=== PATIENT | male | born 1980 | race Caucasian/White ===

== ENCOUNTER 2023-03-08 16:10 | Outpatient (OUT) | payer OTHER, SELFPAY ==
--- NOTE | 2023-03-08 | XR_ITS ---
The [address] [address] Patient Name: ABHAY CHANEL MRN: [id number] date: 1980 Sex: M Assigned Patient Location: [facility] Current Patient Location: Accession/Order Number: [id number] Exam Date: 03/08/2023 16:16 Report Date: 03/10/2023 11:59 At the request of: ROBB BARRIGA Procedure: XR abdomen 1V EXAMINATION: XR abdomen 1V HISTORY: N20.0 ; follow-up kidney stones COMPARISON: XR KUB 03/29/2021 FINDINGS: KIDNEY/URETER - RIGHT: No visible renal or ureteral calcifications. KIDNEY/URETER - LEFT: No visible renal or ureteral calcifications. PELVIS: No visible ureteral stones. BOWEL: No abnormal dilation or deviation. BONES: No acute abnormality. OTHER: Negative. No abnormal gaseous collections. XR/XR abdomen 1V IMPRESSION: 1. No appreciable urinary tract calculi. Electronically authenticated by: PANCHO SUN Date: 03/10/2023 11:59
== END 2023-03-08 16:11 | disposition home or self-care (01) ==
LOC: RAD 16:12
PROVIDERS: Visit Provider Physician Assistant
DX: N20.0 Calculus of kidney (principal)
CPT/HCPCS: 74018

== ENCOUNTER 2025-01-25 08:05 | Outpatient (OUT) | payer OTHER, SELFPAY ==
--- OUTSIDE RECORDS SUMMARY | 2025-01-25 08:09 | XMS_ITS | CCD ---
Author Organization [facility] Inform ion [facility] Care Team Providers Care Senior Research Scientist Name Role Phone CHRISTAL NDIAYE, DR MICHOACANO Dias Attending Liliya SIEGEL JR, DR MICHOACANO Dias Consulting Unavailabl e REQUEST, DR PORRAS LISTED Primary Care James SIEGEL JR, DR MICHOACANO Dias Admitting Unavailabl e REQUEST, DR PORRAS LISTED Primary Care Unavailpj SUN, DR PANCHO Dowling Consulting Jennifer SIEGEL JR, DR MICHOACANO Dias Admitting Liliya SIEGEL JR, DR MICHOACANO Dias Attending Liliya SIEGEL JR, DR MICHOACANO Dias Consulting Liliya SIEGEL JR, DR MICHOACANO Dias Attending Unavailabl e REQUEST, DR PORRAS LISTED Primary Care Unavailpj SIEGEL JR, DR MICHOACANO Dias Admitting Unavaildamion SIEGEL JR, DR MICHOACANO Dias Attending Unavailabl e REQUEST, DR PORRAS LISTED Primary Care Unavailpj SUN, DR PANCHO Dowling Consulting Jennifer SIEGEL JR, DR MICHOACANO Dias Admitting Unavaildamion SIEGEL JR, DR MICHOACANO Dias Consulting Unavaildamion reed NONE, XXXX Primary Care Physician Sabrina Morris Attending Unavailable Problems Problem Classification Problem Date Documented Da te Episodic/Chronic Abdominal pain (2 sources) Flank pain; Translations: [Inguinal pain] 02-18-2019 Episodic Calculus of urinary tract (7 sources) Calculus of kidney; Translations: [Kidney stone] Onset: 03-29-2021 Episodic Results Test Name Value Interpretation Reference Range Facil ity XR KUB 1 VIEWon 03-29-2021 XR KUB 1 VIEW EXAMINATION: XR KUB 1 VIEW HISTORY: Kidney stone follow-up COMPARISON: XR KUB 09/27/2020 FINDINGS: KIDNEY/URETER - RIGHT: No visible renal or ureteral calcifications. KIDNEY/URETER - LEFT: No visible renal or ureteral calcifications. PELVIS: No visible ureteral calcifications. Any visible calcifications favor phleboliths. BOWEL: No abnormal dilation or deviation. BONES: No acute abnormality. OTHER: Negative. No abnormal gaseous collections. IMPRESSION: 1. No visible urinary tract calculi. Electronically authenticated by: PANCHO SUN Date: 2021-03-29 12:18 Normal [facility] CITRATE URINE 24HRon 021 Citric Acid, U, 24hr 528 mg/24 hr Normal 320-1240 [facility] Comment on above: Result Comment: This test was developed and its performance characteristics determined by [facility]. It has not been cleared or approved by the Food and Drug Administration. Performed By: #### C ITRATU #### [facility] [address] [place] [address] Dr. Christiana Mendez Citric Acid, Urine 201 mg/L Normal Undefined [facility] Comment on above: Performed By: #### C ITRATU #### [facility] [address] [place] [address] Dr. Christiana Mendez OXALATE 24HR URINEon 021 Oxalates, Urine 11 mg/L Normal Undefined [facility] Comment on above: Performed By: #### U CHAVA, K, CREA, NA, CL, CO2, CA, BUN #### [facility] [address] [place] [address] Dr. Christiana Mendez Oxalates, Urine 24hr 29 mg/24 hr Normal 7-44 [facility] Comment on above: Performed By: #### U CHAVA, K, CREA, NA, CL, CO2, CA, BUN #### [facility] [address] [place] [address] Dr. Christiana Mendez PTH INTACTon 03-05-2021 PTH, Intact 43 pg/mL Normal 15-65 [facility] Comment on above: Performed By: #### U CHAVA, K, CREA, NA, CL, CO2, CA, BUN #### [facility] [address] [place] [address] Dr. Christiana Mendez MAGNESIUM 24HR URINEon 03-04 Magnesium 24hr Urine 128.6 mg/24 hr Normal 12.0-293.0 [facility] Comment on above: Performed By: #### U CHAVA, K, CREA, NA, CL, CO2, CA, BUN #### [facility] [address] [address] [address] Christiana Mendez Magnesium UR 4.9 mg/dL Normal Not Estab. [facility] Comment on above: Performed By: #### U CHAVA, K, CREA, NA, CL, CO2, CA, BUN #### [facility] [address] [place] [address] Dr. Christiana Mendez PHOSPHORUS 24HR URINEon 02-09 Phosphorus, Urine 33.2 mg/dL Normal Not Estab. [facility] Comment on above: Performed By: #### U CHAVA, K, CREA, NA, CL, CO2, CA, BUN #### [facility] [address] [place] [address] Dr. Christiana Mendez Phosphorus, Urine 24hr 872 mg/24 hr Normal 390-1425 [facility] Comment on above: Performed By: #### U CHAVA, K, CREA, NA, CL, CO2, CA, BUN #### [facility] [address] [place] [address] Dr. Christiana Mendez URIC ACID 24 HR URINEon 02-09 Uric Acid, Urine 18.7 mg/dL Normal Not Estab. [facility] Comment on above: Performed By: #### U CHAVA, K, CREA, NA, CL, CO2, CA, BUN #### [facility] [address] [place] [address] Dr. Christiana Mendez Uric Acid, Urine 24hr 490.9 mg/24 hr Normal 197.2-1078.7 [facility] Comment on above: Performed By: #### U CHAVA, K, CREA, NA, CL, CO2, CA, BUN #### [facility] [address] [place] [address] Dr. Christiana Mendez BUNon 03-03-2021 Urea nitrogen [Mass/Vol] 14.0 mg/dL Normal 9.0-20.0 [facility] Comment on above: Performed By: #### U CHAVA, K, CREA, NA, CL, CO2, CA, BUN #### [facility] [address] [place] [address] Dr. Christiana Mendez CALCIUMon 03-03-2021 Calcium [Mass/Vol] 9.3 mg/dL Normal 8.4-10.2 [facility] Comment on above: Performed By: #### U CHAVA, K, CREA, NA, CL, CO2, CA, BUN #### [facility] [address] [address] [address] Christiana Mendez CALCIUM 24 HR URINEon 2020 CALC, 24 HR UR 223.1 mg/24 hr Normal 100.0-300.0 [facility] Comment on above: Performed By: #### U CHAVA, K, CREA, NA, CL, CO2, CA, BUN #### [facility] [address] [place] [address] Dr. Christiana Mendez UR CALCIUM 8.5 mg/dL Normal 0.0-21.0 [facility] Comment on above: Performed By: #### U CHAVA, K, CREA, NA, CL, CO2, CA, BUN #### [facility] [address] [place] [address] Dr. Christiana Mendez UR TOT VOL 2625 ml/24 HR Normal [facility] Comment on above: Performed By: #### U CHAVA, K, CREA, NA, CL, CO2, CA, BUN #### [facility] [address] [place] [address] Dr. Christiana Mendez CHLORIDEon 03-03-2021 Chloride [Moles/Vol] 104 mmol/L Normal 98-107 [facility] Comment on above: Performed By: #### U CHAVA, K, CREA, NA, CL, CO2, CA, BUN #### [facility] [address] [address] [address] Christiana Mendez CO2on 03-03-2021 CO2 [Moles/Vol] 28.3 mmol/L Normal 22.0-30.0 [facility] Comment on above: Performed By: #### U CHAVA, K, CREA, NA, CL, CO2, CA, BUN #### [facility] [address] [address] [address] Christiana Mendez CREA 24 HR URINEon CREA, 24 HR UR 1937.25 mg/24 hr Normal 1,000.00- 2,000. 00 [facility] Comment on above: Performed By: #### U CHAVA, K, CREA, NA, CL, CO2, CA, BUN #### [facility] [address] [address] [address] Christiana Mendez URINE CREAT 73.80 mg/dL Normal 20.00-300.00 [facility] Comment on above: Performed By: #### U CHAVA, K, CREA, NA, CL, CO2, CA, BUN #### [facility] [address] [address] [address] Christiana Mendez CREATININEon 03-03-2021 Creatinine [Mass/Vol] 1.07 mg/dL Normal 0.66-1.25 [facility] Comment on above: Performed By: #### U CHAVA, K, CREA, NA, CL, CO2, CA, BUN #### [facility] [address] [address] [address] Christiana Mendez EGFR-AF ROMANIAN Normal >=60 [facility] Comment on above: Performed By: #### U CHAVA, K, CREA, NA, CL, CO2, CA, BUN #### [facility] [address] [address] [address] Christiana Mendez EGFR-NON AF ROMANIAN Normal >=60 [facility] Comment on above: Performed By: #### U CHAVA, K, CREA, NA, CL, CO2, CA, BUN #### [facility] [address] [address] [address] Christiana Mendez NAon 03-03-2021 Sodium [Moles/Vol] 142 mmol/L Normal 137-145 [facility] Comment on above: Performed By: #### U CHAVA, K, CREA, NA, CL, CO2, CA, BUN #### [facility] [address] [address] [address] Christiana Mendez POTASSIUMon 03-03-2021 Potassium [Moles/Vol] 4.1 mmol/L Normal 3.4-5.0 [facility] Comment on above: Performed By: #### U CHAVA, K, CREA, NA, CL, CO2, CA, BUN #### [facility] [address] [address] [address] Christiana Mendez SODIUM 24 HR URINEon NA, 24 HR UR 160 mmol/24 hr Normal 40-220 [facility] Comment on above: Performed By: #### U CHAVA, K, CREA, NA, CL, CO2, CA, BUN #### [facility] [address] [address] [address] Christiana Mendez Sodium (U) [Moles/Vol] 61 mmol/L Normal 30-90 [facility] Comment on above: Performed By: #### U CHAVA, K, CREA, NA, CL, CO2, CA, BUN #### [facility] [address] [place] [address] Dr. Christiana Mendez URIC ACID SERUMon 03-03-2021 Urate [Mass/Vol] 7.0 mg/dL Normal 3.5-8.5 [facility] Comment on above: Performed By: #### U CHAVA, K, CREA, NA, CL, CO2, CA, BUN #### [facility] [address] [place] [address] Dr. Christiana Mendez XR KUB 1 VIEWon 10-05-2020 XR KUB 1 VIEW EXAMINATION: XR KUB 1 VIEW HISTORY: Kidney stone COMPARISON: XR KUB 02/18/2019 FINDINGS: KIDNEY/URETER - RIGHT: No visible renal or ureteral calcifications. KIDNEY/URETER - LEFT: No visible renal or ureteral calcifications. PELVIS: No visible ureteral calcifications. Any visible calcifications favor phleboliths. BOWEL: No abnormal dilation or deviation. BONES: No acute abnormality. OTHER: Negative. No abnormal gaseous collections. IMPRESSION: 1. No visible urinary tract calculi. Electronically authenticated by: PANCHO SUN Date: 2020-10-05 12:22 Normal [facility] Vital Signs Date Time Vital Sign Value Performing Clinician Cyn steel 03-14-2023 08:58-0500 Blood Pressure Location ROBB BARRIGA [facility] 03-14-2023 08:58-0500 Diastolic blood pressure 85 mm[Hg] ROBB BARRIGA [facility] 03-14-2023 08:58-0500 Heart rate 105 /min ROBB BARRIGA [facility] 03-14-2023 08:58-0500 Respiratory rate 16 /min ROBB BARRIGA [facility] 03-14-2023 08:58-0500 Systolic blood pressure 145 mm[Hg] ROBB BARRIGA [facility] Encounters Encounter Date Encounter Type Care Provider Facility Start: 03-20-2025 ambulatory Sabrina X Orzech Facilit y:[facility] Start: 03-14-2023 End: 03-14-2023 Patient encounter procedure ROBB GUEVARARY [facility] Start: 03-29-2021 End: 03-30-[address] MICHOACANO SIEGEL JR Facility: Start: 03-03-2021 End: 03-04-[address] MICHOACANO SIEGEL JR Facility: Start: 01-22-[address] MICHOACANO SIEGEL JR cility: Start: 10-05-2020 End: 10-06-[address] PORRAS LISTED REQUEST Facility:[facility]1 Procedures Date Procedure Procedure Detail Performing Clinician Start: 03-26-2019 Cystoscopic removal of ureteric stent ROBB BARRIGA Start: 03-06-2019 Cystoscopic laser lithotripsy of ureteric calculus ROBB BARRIGA Immunizations Immunization Date Immunization Notes Care Provider Fa cility 06-19-2020 SARS-CoV-2 (COVID-19 ) mRNA BNT-162b2 vax ROBB BARRIGA [facility] 05-29-2020 SARS-CoV-2 (COVID-19 ) mRNA BNT-162b2 sawyer BARRIGA [facility] Comment on above: Result Comment: [id number] 04-10-2020 SARS-CoV-2 (COVID-19 ) mRNA BNT-162b2 sawyer BARRIGA [facility] Payers Date Payer Category Payer Unknown [id number] 2.16.84 [id number] 1978 Unknown [id number] 2.16.84 [id number] 1978 Unknown [id number] 2.16.84 [id number] 1978 Unknown [id number] [id number] [id number] 1978 Unknown [id number] [id number] 1959 Unknown [id number] Social History Date Type Detail Facility Start: 03-14-2023 Tobacco smoking status Never s moked tobacco (finding) [facility] Tobacco smoking status Never [facility] Sex Assigned At Male [facility] Functional Status Date Assessment Result Facility 03-14-2023 Functional Status N/A [facility] Hospital Discharge instructions 03-14-2023 Note Date & Type Note Facility 03-14-2023 Hospital Discharg e instructions Patient Education 03/14/2023 09:18:34 Dietary Guidelines to Help Prevent Kidney Stones Dietary Guidelines to Help Prevent Kidney Stones Kidney stones are deposits of minerals and salts that form inside your kidneys. Your risk of developing kidney stones may be greater depending on your diet, your lifestyle, the medicines you take, and whether you have certain medical conditions. Most people can lower their risks of developing kidney stones by following these dietary guidelines. Your dietitian may give you more specific instructions depending on your overall health and the type of kidney stones you tend to develop. What are tips for following this plan? Reading food labels Choose foods with no salt added or low-salt labels. Limit your salt (sodium) intake to less than 1,500 mg a day. Choose foods with calcium for each meal and snack. Try to eat about 300 mg of calcium at each meal. Foods that contain 200 500 mg of calcium a serving include: ?8 oz (237 mL) of milk, veyxaap-dxwkqqbnzdpy-nwffu milk, and calcium-fortifiedfruit juice. Calcium-fortified means that calcium has been added to these drinks. ?8 oz (237 mL) of kefir, yogurt, and soy yogurt. ?4 oz (114 g) of tofu. ?1 oz (28 g) of cheese. ?1 cup (150 g) of dried figs. ?1 cup (91 g) of cooked broccoli. ?One 3 oz (85 g) can of sardines or mackerel. Most people need 1,000 1,500 mg of calcium a day. Talk to your dietitian about how much calcium is recommended for you. Shopping Buy plenty of fresh fruits and vegetables. Most people do not need to avoid fruits and vegetables, even if these foods contain nutrients that may contribute to kidney stones. When shopping for convenience foods, choose: ?Whole pieces of fruit. ?Pre-made salads with dressing on the side. ?Low-fat fruit and yogurt smoothies. Avoid buying frozen meals or prepared deli foods. These can be high in sodium. Look for foods with live cultures, such as yogurt and kefir. Choose high-fiber grains, such as whole-wheat breads, oat bran, and wheat cereals. Cooking Do not add salt to food when cooking. Place a salt shaker on the table and allow each person to add their own salt to taste. Use vegetable protein, such as beans, textured vegetable protein (TVP), or tofu, instead of meat in pasta, casseroles, and soups. Meal planning Eat less salt, if told by your dietitian. To do this: ?Avoid eating processed or pre-made food. ?Avoid eating fast food. Eat less animal protein, including cheese, meat, poultry, or fish, if told by your dietitian. To do this: ?Limit the number of times you have meat, poultry, fish, or cheese each week. Eat a diet free of meat at least 2 days a week. ?Eat only one serving each day of meat, poultry, fish, or seafood. ?When you prepare animal proteins, cut pieces into small portion sizes. For most meat and fish, one serving is about the size of the palm of your hand. Eat at least five servings of fresh fruits and vegetables each day. To do this: ?Keep fruits and vegetables on hand for snacks. ?Eat one piece of fruit or a handful of berries with breakfast. ?Have a salad and fruit at lunch. ?Have two kinds of vegetables at dinner. You may be told to limit foods that are high in a substance called oxalate. These include: ?Spinach (cooked), rhubarb, beets, sweet potatoes, and Cook Islander chard. ?Peanuts. ?Potato chips, kenyan fries, and baked potatoes with skin on. ?Nuts and nut products. ?Chocolate. If you regularly take a diuretic medicine, make sure to eat at least 1 or 2 servings of fruits or vegetables that are high in potassium each day. These include: ?Avocado. ?Banana. ?Swiss, prune, carrot, or tomato juice. ?Baked potato. ?Cabbage. ?Beans and split peas. Lifestyle Drink enough fluid to keep your urine pale yellow. This is the most important thing you can do. Spread your fluid intake throughout the day. If you drink alcohol: ?Limit how much you have to: ?0 1 drink a day for women who are not . ?0 2 drinks a day for men. ?Know how much alcohol is in your drink. In the [place] one drink equals one 12 oz bottle of beer (355 mL), one 5 oz glass of wine (148 mL), or one 1 oz glass of hard liquor (44 mL). Lose weight if told by your health care provider. Work with your dietitian to find an eating plan and weight loss strategies that work best for you. General information Talk to your health care provider and dietitian about taking daily supplements. Depending on your health and the cause of your kidney stones, you may be told: ?Do not take high-dose supplements of vitamin C (1,000 mg a day or more). ?To take a calcium supplement. ?To take a daily probiotic supplement. ?To take other supplements such as magnesium, fish oil, or vitamin B6. Take ccjl-neu-kismusy and prescription medicines only as told by your health care provider. These include supplements. What foods should I limit? Limit your intake of the following foods, or eat them as told by your dietitian. Vegetables Spinach. Rhubarb. Beets. Canned vegetables. Pickles. Olives. Baked potatoes with skin. Grains Wheat bran. Baked goods. Salted crackers. Cereals high in sugar. Meats and other proteins Nuts. Nut butters. Large portions of meat, poultry, or fish. Salted, precooked, or cured meats, such as sausages, meat loaves, and hot dogs. Dairy Cheeses. Beverages Regular soft drinks. Regular vegetable juice. Seasonings and condiments Seasoning blends with salt. Salad dressings. Soy sauce. Ketchup. Barbecue sauce. Other foods Canned soups. Canned pasta sauce. Casseroles. Pizza. Lasagna. Frozen meals. Potato chips. Icelandic fries. The items listed above may not be a complete list of foods and beverages you should limit. Contact a dietitian for more information. What foods should I avoid? Talk to your dietitian about specific foods you should avoid based on the type of kidney stones you have and your overall health. Fruits Grapefruit. The item listed above may not be a complete list of foods and beverages you should avoid. Contact a dietitian for more information. Summary Kidney stones are deposits of minerals and salts that form inside your kidneys. You can lower your risk of kidney stones by making changes to your diet. The most important thing you can do is drink enough fluid. Drink enough fluid to keep your urine pale yellow. Talk to your dietitian about how much calcium you should have each day, and eat less salt and animal protein as told by your dietitian. This information is not intended to replace advice given to you by your health care provider. Make sure you discuss any questions you have with your health care provider. Document Revised: 07/07/2022 Document Reviewed: 07/07/2022 [employer] Patient Education 2022 [employer]. Follow Up Care 09/12/2022 15:39:44 With:LINUS PENA, ROBB Reed, URL Address: [address] [place] [id number] [phone] When: Unknown Comments:1 yr w/ KUB [facility] Evaluation + Plan note Note Date & Type Note Facility Evaluation + Plan note No data available for this section [facility] Progress note Note Date & Type Note Facility Progress note No data available for this section [facility] Summary Purpose Family History No Family History Records Found No data available for this section No Family History Records Found Advance Directives No Advanced Directives Records FoundNo Advanced Directives Records Found Additional Source Comments (unrecognized sect ion and content) No Status Records FoundNo Status Records Found INFORMATION SOURCE (unrecogn ized section and content) DATE CREATED AUTHOR 04/06/2021 [facility] DATE CREATED AUTHOR AUTHOR'S ORGANIZ ATION 01/15/2025 [facility] FOR RECORDS PERTAINING TO PATIENTS WHO ARE OR HAVE BEEN ENROLLED IN A CHEMICAL DEPENDENCY/SUBSTANCEABUSE PROGRAM, SOME INFORMATION MAY BE OMITTED. This clinical summary was aggregated from multiple sources. Caution should be exercised in using it in the provision of clinical care. This summary normalizes information from multiple sources, and as a consequence, information in this document may materially change the coding, format and clinical context of patient data. In addition, data may be omitted in some cases. CLINICAL DECISIONS SHOULD BE BASED ON THE PRIMARY CLINICAL RECORDS. [employer] provides no warranty or guarantee of the accuracy or completeness of information in this document.
[2025-01-25 08:55] LABS: Hematocrit 45.2 % (42.0-54.0); Hemoglobin 15.1 g/dL (14.0-18.0); Immature Granulocytes Abs Auto 0.00 10^3/uL (0.00-0.03); Immature Granulocytes Pct Auto 0.0 % (0.0-0.5); Lymphocytes Absolute Auto 1.6 10^3/uL (1.2-3.8); Mean Corpuscular HGB Conc 33.4 g/dL (29.9-35.2); Mean Corpuscular Hemoglobin 29.9 pg (25.9-34.0); Mean Corpuscular Volume 89.5 fL (80.0-94.0); Platelet Count 200 10^3/uL (150-450); Red Blood Count 5.05 10^6/uL (4.70-6.10); White Blood Count 5.0 10^3/uL (4.0-11.0)
[2025-01-25 09:33] LABS: Alanine Aminotransferase 34 U/L (16-63); Albumin Globulin Ratio 1.2; Albumin Level 4.0 g/dL (3.4-5.0); Alkaline Phosphatase 67 U/L (46-116); Anion Gap 12.1; Aspartate Amino Transferase 13 U/L (15-37); Blood Urea Nitrogen 16.0 mg/dL (7.0-18.0); Calcium 9.3 mg/dL (8.5-10.1); Carbon Dioxide 29.4 mmol/L (21.0-32.0); Chloride 106 mmol/L (98-107); Cholesterol 184 mg/dL (<=200); Estimated GFR (African America >60 (>=60 mL/min/1.73m^2); Estimated GFR (Non-African Ame >60 (>=60 mL/min/1.73m^2); Globulin 3.3 g/dL; Glucose 95 mg/dL (74-106); HDL Cholesterol 68 mg/dL (40-60); Potassium 4.5 mmol/L (3.5-5.1); Sodium 143 mmol/L (136-145); Total Protein 7.3 g/dL (6.4-8.2); Triglycerides 82 mg/dL (<=150); VLDL CHOLESTEROL 16.4 mg/dL
== END 2025-01-25 08:06 | disposition home or self-care (01) ==
PROVIDERS: PCP Family Medicine; Visit Provider Family Medicine
DX: Z00.00 Encounter for general adult medical examination without abnormal findings (principal); Z12.5 Encounter for screening for malignant neoplasm of prostate
CPT/HCPCS: 36415; 80053; 80061; 83036; 85025; G0103

== ENCOUNTER 2025-01-27 16:47 | Outpatient (REF) | payer OTHER, SELFPAY ==
--- OUTSIDE RECORDS SUMMARY | 2025-01-22 05:30 | XMS_ITS ---
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 Yes How often did you have a dri nk containing alcohol in the past year? 2 to 4 times a month (2 points) How many drinks did you have on a typical day when you were drinking in the past year? 1 or 2 drinks (0 point) How often did you have six o r more drinks on one occasion in the past year? Never (0 point) Points 2 Interpretation Negative Problems Problem Type SNOMED Code ICD Code Onset Dates Problem Status W/U Status Risk Notes Problem Kidney stone (43573934) Kidney stone (N20.0) Active confirmed Problem Well adult (480490067) Well adult (Z00.00) Active confirmed Vital Signs Weight 209 lbs 01/22/2025 Height 73 in 01/22/2025 Blood pressure systolic 124 mm Hg 01/23/20 25 Blood pressure diastolic 84 mm Hg 025 BMI 27.57 kg/m2 01/22/2025 Encounters Encounter Location Date Provider Diagnosis [facility] [address] [place] [address] 01/22/2025 Salvador Gillette Well adult Z00.0 0 Assessments Encounter Date Diagnosis (ICD Code) Assessment Notes Treatment Notes Treatment Clinical Notes Section Notes 01/22/2025 Well adult (ICD-10 - Z00.00) Plan Of Treatment Pending Test Test Name Order Date HEMOGLOBIN A1C (GLYCO) 01/22/2025 LIPID PANEL (CHOL/TRIG/HDL/LDL) 01/23/20 25 STOOL OCCULT BLOOD 01/22/2025 PSA, SCREENING 01/22/2025 CMP (COMP MET WYNN) w/eGFR CKD-EPI 2024 CBC WITH DIFF 01/22/2025 Progress Notes * Lyle WILHELMDOB:1980 (44 yo M)Acc No.[id number]:01/22/2025 New Patient Patient: Lyle LLAMAS Provider: Gale Gillette ([facility]), :1980 A ge:44 Y S ex:Male Date:01/22/2025 Address:[address] [place] [address] [facility]Ch[id number] Check In:09:16 AM ESTCheck O ut:10:16 AM EST Subjective: * Chief Complaints: * N P- to est- hasn't seen a provider for a long time * HPI: D epression Screening: PHQ-2 (2015 Edition) L ittle interest or pleasure in doing things??Not at all F eeling down, depressed, or hopeless? N ot at all T otal Score 0 Hof kidney stone - seeing execurive urology MGF - cad MGF - Colon cancer PGM - lung cancer. * ROS: E ENT: hearing changes d enies. v isual changes d enies.?non-healing mouth sores d enies. s wollen glands or neck lumps d enies. h oarseness d enies. s ore throat d enies. d ifficulty swallowing d enies. n ose bleeds d enies. n tyrone congestion d enies. e ar ache d enies. e ar discharge?denies. r inging in ears d enies. l ight sensitivity d enies. e ye pain d enies. b lurring d enies. e ye irritation d enies. d ouble vision d enies.?vision loss d enies. G eneral/Constitutional: Sweats: D enies. F atigue d enies. S leep problems d enies. A norexia d enies. M alaise d enies. W eight loss d enies.?Fatigue or Weakness d enies. F ever or Chills d enies. C ardiovascular: Shortness of Breath w/lying flat d enies. L ightheadedness/dizziness d enies. C hest tightness/ heavy pressure d enies. S welling of legs, ankles, or feet d enies. W aking up with shortness of breath d enies. C hest pain denies. P alpitations d enies. W eight gain d enies. R espiratory: Chronic or frequent cough d enies. C oughing up blood?denies. D ifficulty breathing d enies. P roductive cough d enies. S noring?denies. S hortness of breath that awakens from sleep (PND) d enies. C hest pain d enies. S putum production d enies. W heezing d enies. M usculoskeletal: Joint pain d enies. J oint Fluid d enies. B ack pain d enies. K nee pain d enies. N arley pain d enies. J oint Stiffness d enies. M uscle cramps d enies. W eakness of muscles d enies. A rthritis d enies. M uscle aches d enies. P ain in shoulder(s) d enies. S wollen joints d enies. * Active Problem List N20.0 Kidney stone Modified On:01/22/2025W/U Status:confirmed Z00.00 Well adult Modified On:01/22/2025/U Status:confirmed * Medical History: * Surgical History: L ithotripsy * Hospitalization/Major Diagno stic Procedure: D enies Past Hospitalization * Family History: F ather: alive, Diabetes, A-Fib. M other: alive, kidney stones. S ister(s): alive, Kidney Stones. D aughter(s): alive. P aternal Grandfather: . P aternal Grandmother: , Lung Cancer, COPD. M aternal Grandfather: alive, Heart Attack, Diabetes, Colon Cancer, diagnosed with Cancer, Diabetes. M aternal Grandmother: , Alzheimers, Kidney Stones.?1 sister(s) - healthy. 2 daughter(s) - healthy. . * Social History: T obacco Use: T obacco Control (Standard) T obacco use: N onsmoker D rug/Alcohol: A MICKY-C (Standard) D id you have a drink containing alcohol in the past year? Y es H ow often did you have a drink containing alcohol in the past year? 2 to 4 times a month (2 points) H ow many drinks did you have on a typical day when you were drinking in the past year? 1 or 2 drinks (0 point) H ow often did you have six or more drinks on one occasion in the past year? N ever (0 point) P oints 2 I nterpretation N egative * Medications: N one * Allergies: N .K.D.A.no[Allergies Verified] Objective: * Vitals: W t:209lbs, Ht: 73 in, BP:124/84mm Hg, BMI:27.57Index, Ht-cm: 185.42 cm, Wt-k.8 kg. * Examination: P hysical Exam: GENERAL: w ell developed, well nourished, in no acute distress. HEAD: n ormocephalic/atraumatic. EYES: p upils equal, round and reactive to light, conjunctivae and sclerae normal. EARS: n o deformity or lesion of external ear, canals and TM appear normal bilaterally, TM's intact, not inflamed with normal light reflex, hearing grossly normal to conversational speech. NOSE: n o deformity, discharge, inflammation, or lesions.? MOUTH: m ucous membranes moist, normal oropharynx and posterior pharynx without lesions or exudates, tongue normal, dentition normal. NECK: n arley supple, no masses or palpable cervical nodes, trachea midline, thyroid without nodules, masses, tenderness, or enlargement. CHEST: n o chest wall deformity, no chest wall tenderness.? LUNGS: n ormal respiratory effort and clear to auscultation, no wheezes, rales, or rhonchi, good air exchange. CARDIO: r egular rate and rhythm, normal S1 and S2, nor murmur, rub, or gallop. PULSES: n ormal capillary refill. ABDOMEN: s oft, non-distended, non-tender, no masses. MUSCULOSKELETAL: n o deformity or scoliosis noted, normal range of motion, joints normal, no erythema, edema, effusion, or ecchymosis. EXTREMITY: n o clubbing, cyanosis, edema, or deformity with normal ROM in both upper and lower bilateral extremities. NEUROLOGIC: g rossly normal. SKIN: n o rashes, ulcerations, or suspicious lesions. LYMPH NODES: n o cervical adenopathy, nodes normal. MENTAL STATUS: a lert and oriented x3, normal mood and affect. Assessment: * Assessment: 1. W ell adult - Z00.00 (Primary) Plan: * Treatment: * Procedure Codes: * Preventive Medicine: Screenings/Counseling: B ND ACTION PLAN Above Normal BMI Follow-up D ietary management education, guidance, and counseling * * Sign off status: Completed Visit Status: C HK (Check Out) true * Provider: Gale Gillette ([facility])MD Date: Generated for Printi jabier/Sienna/eTransmitting on: 04:51 PM EDT History and Physical Notes * HPI (History of Present Illness) Category Sub-Category Detail Notes Category Not es Depression Screening PHQ-2 (2015 Edition) Little interest or pleasure in doing things?: Not at all Hof kidney stone - seeing execurive urology MGF - cad MGF - Colon cancer PGM - lung cancer Feeling down, depressed, or hopeless?: N ot at all Total Score: 0 Examination Category Sub-Category Detail Notes Category Not es Physical Exam GENERAL: well developed, well nourished, in no acute distress HEAD: normocephalic/atraum atic EYES: pupils equal, round and reactive to light, conjunctivae and sclerae normal EARS: no deformity or lesi on of external ear, canals and TM appear normal bilaterally, TM's intact, not inflamed with normal light reflex, hearing grossly normal to conversational speech NOSE: no deformity, discha rge, inflammation, or lesions MOUTH: mucous membranes olu st, normal oropharynx and posterior pharynx without lesions or exudates, tongue normal, dentition normal NECK: neck supple, no mass es or palpable cervical nodes, trachea midline, thyroid without nodules, masses, tenderness, or enlargement CHEST: no chest wall deform ity, no chest wall tenderness LUNGS: normal respiratory e ffort and clear to auscultation, no wheezes, rales, or rhonchi, good air exchange CARDIO: regular rate and rhy thm, normal S1 and S2, nor murmur, rub, or gallop PULSES: normal capillary ref ill ABDOMEN: soft, non-distended, non-tender, no masses RECTAL: MUSCULOSKELETAL: no deformity or scol iosis noted, normal range of motion, joints normal, no erythema, edema, effusion, or ecchymosis EXTREMITY: no clubbing, cyanosi s, edema, or deformity with normal ROM in both upper and lower bilateral extremities NEUROLOGIC: grossly normal SKIN: no rashes, ulceratio ns, or suspicious lesions LYMPH NODES: no cervical adenopat hy, nodes normal MENTAL STATUS: alert and oriented x 3, normal mood and affect
--- OUTSIDE RECORDS SUMMARY | 2025-01-27 16:50 | XMS_ITS | Clinical Summary ---
Author Organization [facility] Address [address] [place] [address], [address] [place] [address] Care Team Providers Care Director Consumer Name Role Phone Unavailable Primary Care Provider Unavailabl e Allergies No known active allergies Medications No known medications Social History Tobacco Use Types Packs/Day Years Used Date Smoking Tobacco: Never Alcohol Use Standard Drinks/Week Comments No 0 (1 standard drink = 0.6 oz pur e alcohol) Sex and Gender Information Value Date Recorded Sex Assigned at Not on file Legal Sex Male 7:40 PM EDT Gender Identity Not on file Sexual Orientation Not on file Last Filed Vital Signs Vital Sign Reading Time Taken Comments Blood Pressure 138/78 12/30/2013 9:42 PM EDT Pulse 75 12/30/2013 9:42 PM EDT Temperature 36.5 C (97.7 F) 12/30/2013 8:09 PM EDT Respiratory Rate 18 12/30/2013 8:09 PM EDT Oxygen Saturation 96% 12/30/2013 8:09 PM EDT Inhaled Oxygen Concentration - - Weight - - Height - - Body Mass Index - - Plan of Treatment Not on file
--- OUTSIDE RECORDS SUMMARY | 2025-01-27 16:51 | XMS_ITS | Patient Health Record ---
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 Name Role Phone Salvador Gillette Primary Care Provider [phone] Allergies No Known Allergies Results Component Value Reference Range Notes CBC AUTO DIFF Reviewed date:01/27/2025 12:34:36 PM Interpretation: Performing Lab: Notes/Report: [facility] , White Blood Count 5.0 4.0-11.0 10 3/uL Red Blood Count 5.05 4.70-6.10 10 6/uL Hemoglobin 15.1 14.0-18.0 g/dL Hematocrit 45.2 42.0-54.0 % Mean Corpuscular Volume 89.5 80.0-94.0 fL Mean Corpuscular Hemoglobin 29.9 25.9-34.0 pg Mean Corpuscular HGB Conc 33.4 29.9-35.2 g/dL Red Cell Distribution Width 12.5 11.0-15.0 % Platelet Count 200 150-450 10 3/uL Mean Platelet Volume 8.5 9.5-13.5 fL Neutrophils Percent Auto 60.7 43.0-75.0 % Lymphocytes Percent Auto 31.3 20.5-60.0 % Monocytes Percent Auto 6.8 1.7-12.0 % Eosinophils Percent Auto 0.6 0.9-7.0 % Basophils Percent Auto 0.6 0.2-2.0 % Immature Granulocytes Pct Auto 0.0 0.0-0.5 % Neutrophils Absolute Auto 3.0 1.4-6.5 10 3/uL Lymphocytes Absolute Auto 1.6 1.2-3.8 10 3/uL Monocytes Absolute Auto 0.3 0.3-0.8 10 3/uL Eosinophils Absolute Auto 0.0 0.0-0.7 10 3/uL Basophils Absolute Auto 0.0 0.0-0.1 10 3/uL Immature Granulocytes Abs Auto 0.00 0.00-0.03 10 3/uL Performing Lab: see note ML - [facility] GLYCOHEMOGLOBIN A1C Reviewed date:01/27/2025 12:34:36 PM Interpretation: Performing Lab: Notes/Report: [facility] , Glycohemoglobin A1C 5.4 4.5-6.2 % ADA RECOMMENDED LIMIT 4.0 - 6.0 ADA THERAPEUTIC TARGET < 7.0 ACTION SUGGESTED > 7.0 Estimated Average Glucose 108 Performing Lab: see note ML - [facility] LIPID PROFILE Reviewed date:01/27/2025 12:34:36 PM Interpretation: Performing Lab: Notes/Report: [facility] , Triglycerides 82 <=150 mg/dL Cholesterol 184 <=200 mg/dL HDL Cholesterol 68 40-60 mg/dL > or =60 mg/dl - LOW CARDIOVASCULAR RISK <40 mg/dl - HIGH CARDIOVASCULAR RISK LDL Cholesterol Calculated 100.0 <100 mg/dl OPTIMAL 100-129 mg/dl NEAR OR ABOVE OPTIMAL 130-159 mg/dl BORDERLINE HIGH 160-189 mg/dl HIGH >190 mg/dl VERY HIGH VLDL CHOLESTEROL 16.4 Chol HDL Ratio 2.7 3.3 - 4.4 LOW RISK 4.4 - 7.1 AVERAGE RISK 7.1 - 11.0 MODERATE RISK >11.0 HIGH RISK Performing Lab: see note ML - [facility] LB PROF 14(COMP METB) Reviewed date:01/27/2025 12:34:36 PM Interpretation: Performing Lab: Notes/Report: [facility] , Sodium 143 136-145 mmol/L Potassium 4.5 3.5-5.1 mmol/L Chloride 106 98-107 mmol/L Carbon Dioxide 29.4 21.0-32.0 mmol/L Anion Gap 12.1 Glucose 95 74-106 mg/dL Blood Urea Nitrogen 16.0 7.0-18.0 mg/dL Creatinine 1.03 0.70-1.30 mg/dL Estimated GFR ( Nicole >60 >=60 mL/min/1.73m 2 Estimated GFR (Non- Jasmine >60 >=60 mL/min/1.73m 2 BUN Creatinine Ratio 15.5 Calcium 9.3 8.5-10.1 mg/dL Bilirubin Total 0.5 0.2-1.0 mg/dL Aspartate Amino Transferase 13 15-37 U/L Alanine Aminotransferase 34 16-63 U/L Alkaline Phosphatase 67 46-116 U/L Total Protein 7.3 6.4-8.2 g/dL Albumin Level 4.0 3.4-5.0 g/dL Globulin 3.3 Albumin Globulin Ratio 1.2 Performing Lab: see note ML - [facility] LB PSA SCREENING Reviewed date:01/27/2025 12:34:36 PM Interpretation: Performing Lab: Notes/Report: [facility] , Prostate Specific Antigen Scrn 1.23 <=4.00 ng/mL Performing Lab: see note ML - [facility] LB Reason For Referral No Information Social History Tobacco Use: Social History Observation [...] W/U Status Risk Notes Problem Kidney stone (82156905) Kidney stone (N20.0) Active confirmed Problem Well adult (833761608) Well adult (Z00.00) Active confirmed Vital Signs Blood pressure diastolic 84 mm Hg 01/22/2025 Height 73 in 01/22/2025 Blood pressure systolic 124 mm Hg 01/22/2025 Weight 209 lbs 01/22/2025 BMI 27.57 kg/m2 01/22/2025 Encounters Encounter Location Date Provider Diagnosis [facility] [address] [place] [address] 01/22/2025 Salvador Gillette Well adult Z00.0 0 [facility] [address] [place] [address] 01/27/2025 Salvador Gillette Assessments Encounter Date Diagnosis (ICD Code) Assessment Notes Treatment Notes Treatment Clinical Notes Section Notes 01/22/2025 Well adult (ICD-10 - Z00.00) Plan Of Treatment Pending Test Test Name Order Date HEMOGLOBIN A1C (GLYCO) 01/22/2025 LIPID PANEL (CHOL/TRIG/HDL/LDL) 01/23/20 25 STOOL OCCULT BLOOD 01/22/2025 PSA, SCREENING 01/22/2025 CMP (COMP MET [place]) w/eGFR CKD-EPI 2024 CBC WITH DIFF 01/22/2025 Insurance Providers Payer Name Payer Address Payer Phone Subscriber Number Group Number Insured Name Patient Relationship to Insured Coverage Start Date Coverage End Date MMO [address] [place], [place] [id number] [phone] [id number] Chidi Wilhelm Self - patient is the insured Medical (General) History Medical History History ICD Code Kidney stone N20.0 Surgical History Surgery Date(Month/Year) Lithotripsy
--- OUTSIDE RECORDS SUMMARY | 2025-01-27 16:51 | XMS_ITS | CCD ---
Author Organization [facility] Inform ion [facility] Care Team Providers Care Fence Repairman Name Role Phone CHRISTAL NDIAYE, DR MICHOACANO Dias Attending Liliya SIEEGL JR, DR MICHOACANO Dias Consulting Unavailabl e [...] by: PANCHO SUN Date: 2021-03-29 12:18 Normal [facility] CITRATE URINE 24HRon 021 Citric Acid, U, 24hr 528 mg/24 hr Normal 320-1240 [facility] Comment on above: Result Comment: This test was developed and its performance characteristics determined by [facility] It has not been cleared or approved by the Food and Drug Administration. Performed By: #### C ITRATU #### [facility] [address] [place] [address] Dr. Christiana Mendez Citric Acid, Urine 201 mg/L Normal Undefined [facility] Comment on above: Performed By: #### C ITRATU #### [facility] [address] [place] [address] Dr. Christiana Mendez OXALATE 24HR URINEon 021 Oxalates, Urine 11 mg/L Normal Undefined [facility] Comment on above: Performed By: #### U CHAVA, K, CREA, NA, CL, CO2, CA, BUN #### [facility] [address] [place] [address] Dr. Christiana Mendez Oxalates, Urine 24hr 29 mg/24 hr Normal 7-44 [facility] Comment on above: Performed By: #### U CHAVA, K, CREA, NA, CL, CO2, CA, BUN #### [facility] [address] [place] [address] Dr. Christiana Mendez PTH INTACTon 03-05-2021 PTH, Intact 43 pg/mL Normal 15-65 [facility] Comment on above: Performed By: #### U CHAVA, K, CREA, NA, CL, CO2, CA, BUN #### [facility] [address] [place] [address] Dr. Christiana Mendez MAGNESIUM 24HR URINEon 03-04 Magnesium 24hr Urine 128.6 mg/24 hr Normal 12.0-293.0 [facility] Comment on above: Performed By: #### U CHAVA, K, CREA, NA, CL, CO2, CA, BUN #### [facility] [address] [address] [address] Christiana Mendez Magnesium UR 4.9 mg/dL Normal Not Estab. [facility] Comment on above: Performed By: #### U CHAVA, K, CREA, NA, CL, CO2, CA, BUN #### [facility] [address] [place] [address] Dr. Christiana Mendez PHOSPHORUS 24HR URINEon 02-09 Phosphorus, Urine 33.2 mg/dL Normal Not Estab. [facility] Comment on above: Performed By: #### U CHAVA, K, CREA, NA, CL, CO2, CA, BUN #### [facility] [address] [place] [address] Dr. Christiana Mendez Phosphorus, Urine 24hr 872 mg/24 hr Normal 390-1425 [facility] Comment on above: Performed By: #### U CHAVA, K, CREA, NA, CL, CO2, CA, BUN #### [facility] [address] [place] [address] Dr. Christiana Mendez URIC ACID 24 HR URINEon 02-09 Uric Acid, Urine 18.7 mg/dL Normal Not Estab. The [facility] Comment on above: Performed By: #### U CHAVA, K, CREA, NA, CL, CO2, CA, BUN #### [facility] [address] [place] [address] Dr. Christiana Mendez Uric Acid, Urine 24hr 490.9 mg/24 hr Normal 197.2-1078.7 [facility] Comment on above: Performed By: #### U CHAVA, K, CREA, NA, CL, CO2, CA, BUN #### [facility] [address] [place] [address] Dr. Christiana Mendez BUNon 03-03-2021 Urea nitrogen [Mass/Vol] 14.0 mg/dL Normal 9.0-20.0 [facility] Comment on above: Performed By: #### U CHAVA, K, CREA, NA, CL, CO2, CA, BUN #### [facility] [address] [place] [address] Dr. Christiana Mendez CALCIUMon 03-03-2021 Calcium [Mass/Vol] 9.3 mg/dL Normal 8.4-10.2 [facility] Comment on above: Performed By: #### U CHAVA, K, CREA, NA, CL, CO2, CA, BUN #### [facility] [address] [address] [address] Christiana Mendez CALCIUM 24 HR URINEon 2020 CALC, 24 HR UR 223.1 mg/24 hr Normal 100.0-300.0 [facility] Comment on above: Performed By: #### U CHAVA, K, CREA, NA, CL, CO2, CA, BUN #### [facility] [address] [place] [address] Dr. Christiana Mendez UR CALCIUM 8.5 mg/dL Normal 0.0-21.0 [facility] Comment on above: Performed By: #### U CHAVA, K, CREA, NA, CL, CO2, CA, BUN #### [facility] [address] [place] [address] Dr. Christiana Mendez UR TOT VOL 2625 ml/24 HR Normal The [facility] Comment on above: Performed By: #### U CHAVA, K, CREA, NA, CL, CO2, CA, BUN #### [facility] [address] [place] [address] Dr. Christiana Mendez CHLORIDEon 03-03-2021 Chloride [Moles/Vol] 104 mmol/L Normal 98-107 [facility] Comment on above: Performed By: #### U CHAVA, K, CREA, NA, CL, CO2, CA, BUN #### [facility] [address] [address] [address] Christiana Mendez CO2on 03-03-2021 CO2 [Moles/Vol] 28.3 mmol/L Normal 22.0-30.0 [facility] Comment on above: Performed By: #### U CHAVA, K, CREA, NA, CL, CO2, CA, BUN #### [facility] [address] [address] [address] Christiana Mendez CREA 24 HR URINEon CREA, 24 HR UR 1937.25 mg/24 hr Normal 1,000.00- 2,000. 00 [facility] Comment on above: Performed By: #### U CHAVA, K, CREA, NA, CL, CO2, CA, BUN #### [facility] [address] [address] [address] Christiana Mendez URINE CREAT 73.80 mg/dL Normal 20.00-300.00 [facility] Comment on above: Performed By: #### U CHAVA, K, CREA, NA, CL, CO2, CA, BUN #### [facility] [address] [address] [address] Christiana Mendez CREATININEon 03-03-2021 Creatinine [Mass/Vol] 1.07 mg/dL Normal 0.66-1.25 [facility] Comment on above: Performed By: #### U CHAVA, K, CREA, NA, CL, CO2, CA, BUN #### [facility] [address] [address] [address] Christiana Mendez EGFR-AF MACANESE Normal >=60 [facility] Comment on above: Performed By: #### U CHAVA, K, CREA, NA, CL, CO2, CA, BUN #### [facility] [address] [address] [address] Christiana Mendez EGFR-NON AF MACANESE Normal >=60 [facility] Comment on above: Performed By: #### U CHAVA, K, CREA, NA, CL, CO2, CA, BUN #### [facility] [address] [address] [address] Christiana Mendez NAon 03-03-2021 Sodium [Moles/Vol] 142 mmol/L Normal 137-145 [facility] Comment on above: Performed By: #### U CHAVA, K, CREA, NA, CL, CO2, CA, BUN #### [facility] [address] [address] [address] Christiana Mendez POTASSIUMon 03-03-2021 Potassium [Moles/Vol] 4.1 mmol/L Normal 3.4-5.0 [facility] Comment on above: Performed By: #### U CHAVA, K, CREA, NA, CL, CO2, CA, BUN #### [facility] [address] [address] [address] Christiana Mendez SODIUM 24 HR URINEon NA, 24 HR UR 160 mmol/24 hr Normal 40-220 [facility] Comment on above: Performed By: #### U CHAVA, K, CREA, NA, CL, CO2, CA, BUN #### [facility] [address] [address] [address] Christiana Mendez Sodium (U) [Moles/Vol] 61 mmol/L Normal 30-90 [facility] Comment on above: Performed By: #### U CHAVA, K, CREA, NA, CL, CO2, CA, BUN #### [facility] [address] [place] [address] Dr. Christiana Mendez URIC ACID SERUMon 03-03-2021 Urate [Mass/Vol] 7.0 mg/dL Normal 3.5-8.5 [facility] Comment on above: Performed By: #### U CHAVA, K, CREA, NA, CL, CO2, CA, BUN #### [facility] [address] [place] [address] Dr. Christiana Mendez XR KUB 1 VIEWon [...] by: PANCHO SUN Date: 2020-10-05 12:22 Normal [facility] Vital Signs Date Time Vital Sign Value Performing Clinician Cyn steel 03-14-2023 08:58-0500 Blood Pressure Location ROBB BARRIGA [facility] 03-14-2023 08:58-0500 Diastolic blood pressure 85 mm[Hg] ROBB BARRIGA [facility] 03-14-2023 08:58-0500 Heart rate 105 /min ROBB BARRIGA [facility] 03-14-2023 08:58-0500 Respiratory rate 16 /min ROBB BARRIGA [facility] 03-14-2023 08:58-0500 Systolic blood pressure 145 mm[Hg] ROBB BARRIGA [facility] Encounters Encounter Date Encounter Type Care Provider Facility Start: 03-20-2025 ambulatory Sabrina X Orzech Facilit y:[facility] Start: 03-14-2023 End: 03-14-2023 Patient encounter procedure ROBB GUEVARARY [facility] Start: 03-29-2021 End: 03-30-[address] MICHOACANO [...] BNT-162b2 vax ROBB BARRIGA [facility] 05-29-2020 SARS-CoV-2 (COVID-19 ) mRNA BNT-162b2 sawyer BARRIGA [facility] Comment on above: Result Comment: [id number]: [id number] 04-10-2020 SARS-CoV-2 (COVID-19 ) mRNA BNT-162b2 sawyer BARRIGA [facility] Payers Date Payer Category Payer Unknown [id number] 2.16.84 [id number] 1978 Unknown [id number] 2.16.84 [id number] 1978 Unknown [id number] 2.16.84 [id number] 1978 Unknown [id number] 2.16.84 [id number] 1978 Unknown [id number] 2.16.8 [id number] 1959 Unknown [id number] Social History Date Type Detail Facility Start: 03-14-2023 Tobacco smoking status Never s moked tobacco (finding) [facility] Tobacco smoking status Never [facility] Sex Assigned At Male [facility] Functional Status Date Assessment Result Facility 03-14-2023 Functional Status N/A [facility] Discharge instructions 03-14-2023 Note Date & [...] include: ?8 oz (237 mL) of milk, nwdwrbt-fnwqoewfsplh-mdozl milk, and calcium-fortifiedfruit juice. Calcium-fortified means that [...] ?Spinach (cooked), rhubarb, beets, sweet potatoes, and Monegasque chard. ?Peanuts. ?Potato chips, chadian fries, and baked potatoes with skin on. ?Nuts and nut products. ?Chocolate. If you regularly take a diuretic medicine, make sure to eat at least 1 or 2 servings of fruits or vegetables that are high in potassium each day. These include: ?Avocado. ?Banana. ?[place], prune, carrot, or tomato juice. ?Baked potato. [...] magnesium, fish oil, or vitamin B6. Take endo-ere-hutnemz and prescription medicines only as told by [...] Casseroles. Pizza. Lasagna. Frozen meals. Potato chips. Tristanian fries. The items listed above may not [...] provider. Document Revised: 07/07/2022 Document Reviewed: 07/07/2022 [employer] Patient Education 2022 [employer]. Follow Up Care 09/12/2022 15:39:44 With:LINUS PENA, ROBB Reed, URL Address: [address] [place] [address] [phone] When: Unknown Comments:1 yr w/ KUB [facility] Evaluation + Plan note Note Date & Type Note Facility Evaluation + Plan note No data available for this section [facility] Progress note Note Date & Type Note Facility Progress note No data available for this section [facility] Summary Purpose Family History No Family History Records Found No data available for this section No Family History Records Found Advance Directives No Advanced Directives Records FoundNo Advanced Directives Records Found Additional Source Comments (unrecognized sect ion and content) No Status Records FoundNo Status Records Found INFORMATION SOURCE (unrecogn ized section and content) DATE CREATED AUTHOR 04/06/2021 [facility] DATE CREATED AUTHOR AUTHOR'S ORGANIZ ATION 01/15/2025 [facility] FOR RECORDS PERTAINING TO PATIENTS WHO ARE [...] BE BASED ON THE PRIMARY CLINICAL RECORDS. [employer] provides no warranty or guarantee of the accuracy or completeness of information in this document.
== END 2025-01-27 16:48 | disposition home or self-care (01) ==
LOC: LAB 16:47
PROVIDERS: PCP Family Medicine; Visit Provider Family Medicine
DX: Z00.00 Encounter for general adult medical examination without abnormal findings (principal); Z12.5 Encounter for screening for malignant neoplasm of prostate
CPT/HCPCS: G0328

== ENCOUNTER 2025-03-20 11:38 | Outpatient (OUT) | payer OTHER, SELFPAY ==
--- OUTSIDE RECORDS SUMMARY | 2025-03-20 11:44 | XMS_ITS | CCD ---
Author Organization [facility] Inform ion [facility] Care Team Providers Care Occupational Therapy Department Chair Name Role Phone CHRISTAL NDIAYE, DR MICHOACANO Dias Attending Liliya SIEGEL JR, DR MICHOACANO Dias Consulting Unavailabl e REQUEST, DR PORRAS LISTED Primary Care James SIEGEL JR, DR MICHOACANO Dias Admitting Unavailabl e REQUEST, DR PORRAS LISTED Primary Care Unavaila marlen SUN, DR PANCHO Dowling Consulting Unavailable CHRISTAL NDIAYE, DR MICHOACANO Dias Admitting Unavaildamion SIEGEL JR, DR MICHOACANO Dias Attending Liliya SIEGEL JR, DR MICHOACANO Dias Consulting Liliya SIEGEL JR, DR MICHOACANO Dias Attending Unavailabl e REQUEST, DR PORRAS LISTED Primary Care Unavailpj SIEGEL JR, DR MICHOACANO Dias Admitting Unavaildamion SIEGEL JR, DR MICHOACANO Dias Attending Unavailabl e REQUEST, DR PORRAS LISTED Primary Care Unavailpj SUN, DR PANCHO Dowling Consulting Unavailable CHRISTAL NDIAYE, DR MICHOACANO Dias Admitting Unavaildamion SIEGEL JR, DR MICHOACANO Dias Consulting Unavaildamion reed NONE, XXXX Primary Care Physician Sabrina Morris Attending Unavailable Problems Problem ClassificationProblemDateDocumented DateEpisodic/ChronicAbdominal pain (2 sources)Flank pain; Translations: [Inguinal pain]89-75-3835EkxxzvxrPajbwamc of urinary tract (7 sources)Calculus of kidney; Translations: [Kidney stone]Onset: 03-29-2021 Episodic Results Test NameValueInterpretationReference RangeFacilityXR KUB 1 VIEWon 67-09-9936FO KUB 1 VIEWEXAMINATION: XR KUB 1 VIEW HISTORY: Kidney stone [...] Electronically authenticated by: PANCHO SUN Date: 2021-03-29 12:18NoMercy Health Springfield Regional Medical CenterCITRATE URINE 24HRon 12-74-4197Lrtpal Acid, U, 90ry482 mg/24 hr Sijniw074-4468OdoKettering Health – Soin Medical CenterComment on above:Result Comment: This test was developed and its performance characteristics determined by [facility]. It has not been cleared or approved by the Food and Drug Administration.Performed By: #### CITRATU #### [facility] [address] [place] [address] Dr. Christiana MendezCitric Acid, Qmqcr290 mg/LNormalUndefinedKettering Health – Soin Medical Center Comment on above:Performed By: #### CITRATU #### [facility] [address] [place] [address] Dr. Christiana MendezOXALATE 24HR URINEon 21-33-6676Kpzmhbom, Urine11 mg/LNormal UndefinedKettering Health – Soin Medical CenterComment on above:Performed By: #### URIC, K, CREA, NA, CL, CO2, CA, BUN #### [facility] [address] [place] [address] Dr. Christiana MendezOxalates, Urine 24hr29 mg/24 hrNormal7-44[facility] Comment on above:Performed By: #### URIC, K, CREA, NA, CL, CO2, CA, BUN #### [facility] [address] [place] [address] Dr. Christiana MendezPTH INTACTon 97-62-3968XDI, Inwkio88 pg/rGHirczd55-86IvgKettering Health – Soin Medical CenterComment on above:Performed By: #### URIC, K, CREA, NA, CL, CO2, CA, BUN #### [facility] [address] [place] [address] Dr. Crhistiana MendezMAGNESIUM 24HR URINEon 02-00-9144Xjkmjckrs 24hr Xrhoy709.6 mg/24 ecYilajr10.0-293.0Wayne Hospitalment on above:Performed By: #### URIC, K, CREA, NA, CL, CO2, CA, BUN #### [facility] [address] [place] [address] Dr. Christiana Ruddesium UR4.9 mg/dLNormalNot Estab.The [facility] Hospitalment on above:Performed By: #### URIC, K, CREA, NA, CL, CO2, CA, BUN #### [facility] [address] [place] [address] Dr. Christiana MendezPHOSPHORUS 24HR URINEon 73-45-8274Dvytaazigz, Urine33.2 mg/dL NormalNot Estab.The [facility] on above:Performed By: #### URIC, K, CREA, NA, CL, CO2, CA, BUN #### [facility] [address] [place] [address] Dr. Christiana MendezPhosphorus, Urine 05rb945 mg/24 atFgiuul741-3129Tqj [facility] on above:Performed By: #### URIC, K, CREA, NA, CL, CO2, CA, BUN #### [facility] [address] [place] [address] Dr. Christiana MendezURIC ACID 24 HR URINEon 02-52-8527Tidl Acid, Urine18.7 mg/dL NormalNot Estab.The [facility] on above:Performed By: #### URIC, K, CREA, NA, CL, CO2, CA, BUN #### [facility] [address] [place] [address] Dr. Christiana MendezUric Acid, Urine 72el624.9 mg/24 tgEmjrya384.2-1078.7The [facility] on above:Performed By: #### URIC, K, CREA, NA, CL, CO2, CA, BUN #### [facility] [address] [place] [address] Dr. Christiana Salazar 02-66-0606Mimd nitrogen [Mass/Vol]14.0 mg/dLNormal9.0-20.0 The [facility] on above:Performed By: #### URIC, K, CREA, NA, CL, CO2, CA, BUN #### [facility] [address] [place] [address] Dr. Christiana MoeIUMon 38-69-6456Ldizjjd [Mass/Vol]9.3 mg/dLNormal8.4-10.2The [facility] on above:Performed By: #### URIC, K, CREA, NA, CL, CO2, CA, BUN #### [facility] [address] [place] [address] Dr. Christiana MoeIUM 24 HR URINEon 45-32-7310PLMY, 24 HR UR223.1 mg/24 hr Gyhgcb522.0-300.0The [facility] on above:Performed By: #### URIC, K, CREA, NA, CL, CO2, CA, BUN #### [facility] [address] [place] [address] Dr. Christiana Shah CALCIUM8.5 mg/dLNormal0.0-21.0The [facility] on above:Performed By: #### URIC, K, CREA, NA, CL, CO2, CA, BUN #### [facility] [address] [place] [address] Dr. Christiana Shah TOT SVG2521 ml/24 HRNormalThe [facility] CenterComoaklawn hospital on above:Performed By: #### URIC, K, CREA, NA, CL, CO2, CA, BUN #### [facility] [address] [place] [address] Dr. Christiana MendezCHLORIDEon 00-62-4248Bmvhpvvd [Moles/Vol]104 mmol/YFhvdkw27-974 The [facility] on above:Performed By: #### URIC, K, CREA, NA, CL, CO2, CA, BUN #### [facility] [address] [place] [address] Dr. Christiana MendezCO2on 90-58-2429GA6 [Moles/Vol]28.3 mmol/IFfscvt38.0-30.0The [facility] HospitalComment on above:Performed By: #### URIC, K, CREA, NA, CL, CO2, CA, BUN #### [facility] [address] [place] [address] Dr. Christiana Benz 24 HR URINEon 51-76-3028ILOW, 24 HR MD0119.25 mg/24 hrNormal 1,000.00-2,000.00The [facility] CenterComment on above:Performed By: #### URIC, K, CREA, NA, CL, CO2, CA, BUN #### [facility] [address] [place] [address] Dr. Christiana Rose CREAT73.80 mg/yDGzyxyb21.00-300.00The [facility] Comment on above:Performed By: #### URIC, K, CREA, NA, CL, CO2, CA, BUN #### [facility] [address] [place] [address] Dr. Christiana ButlerATININEon 88-03-1525Bulflixggo [Mass/Vol]1.07 mg/dLNormal 0.66-1.25The [facility] CenterComment on above:Performed By: #### URIC, K, CREA, NA, CL, CO2, CA, BUN #### [facility] [address] [place] [address] Dr. Villeda ChangEGFR-AF AMERICANNormal>=60[facility] Medical CenterComment on above: Performed By: #### URIC, K, CREA, NA, CL, CO2, CA, BUN #### [facility] [address] [place] [address] Dr. Villeda ChangEGFR-NON AF AMERICANNormal>=60[facility] Medical CenterComment on above:Performed By: #### URIC, K, CREA, NA, CL, CO2, CA, BUN #### [facility] [address] [place] [address] Dr. Christiana Elkins 14-91-3041Wxyrvt [Moles/Vol]142 mmol/GTwjhmw604-108Vhr [facility] CenterComment on above:Performed By: #### URIC, K, CREA, NA, CL, CO2, CA, BUN #### [facility] [address] [address] [address] Christiana MendezPOTASSIUMon 08-58-8277Xesptlijt [Moles/Vol]4.1 mmol/LNormal 3.4-5.0The [facility] CenterComment on above:Performed By: #### URIC, K, CREA, NA, CL, CO2, CA, BUN #### [facility] [address] [address] [address] Christiana MendezSODIUM 24 HR URINEon 89-25-2774BS, 24 HR UR160 mmol/24 hrNormal 40-220The [facility] CenterComment on above:Performed By: #### URIC, K, CREA, NA, CL, CO2, CA, BUN #### [facility] [address] [place] [address] Dr. Christiana MendezSodium (U) [Moles/Vol]61 mmol/DNjmwhe42-73Cqh [facility] Comment on above:Performed By: #### URIC, K, CREA, NA, CL, CO2, CA, BUN #### [facility] [address] [place] [address] Dr. Christiana MendezURIC ACID SERUMon 42-75-0499Otjzb [Mass/Vol]7.0 mg/dLNormal 3.5-8.5The [facility] CenterComment on above:Performed By: #### URIC, K, CREA, NA, CL, CO2, CA, BUN #### [facility] [address] [place] [address] Dr. Christiana MendezXR KUB 1 VIEWon 23-39-2463JB KUB 1 VIEWEXAMINATION: XR KUB 1 VIEW HISTORY: Kidney stone [...] Electronically authenticated by: PANCHO SUN Date: 2020-10-05 12:22[facility] Vital Signs Date TimeVital SignValuePerforming VmgibvhimGygdpajq95-97-1571 08:58-0500Blood Pressure LocationJENNIFER LINUS [facility]12-05-2023 08:58-0500Diastolic blood arklrcqe31 mm[Hg]ROBB LINUS [facility]12-05-2023 08:58-0500Heart exuo676 /minJENNIFER LINUS [facility]12-05-2023 08:58-0500Respiratory rate16 /minJENNIFER LINUS [facility]12-05-2023 08:58-0500Systolic blood nvkpugod963 mm[Hg]ROBB LINUS [facility] Encounters Encounter DateEncounter TypeCare ProviderFacilityStart: 92-24-1979nmddwzknun Sabrina X OrzechFacility:EU [facility]: 03-14-2023 End: 38-99-8629Ahrnbtg encounter procedureJENNIFER E LINUS [facility] start: 03-29-2021 End: 24-52-6201hmiipjoclwNJ MICHOACANO SIEGEL JRFacility:S3Bzgak: 03-03-2021 End: 65-97-7830rigwgdaxfqGR MICHOACANO SIEGEL JRFacility:J1Czctj: 01-22-2021 ambulatoryDR MICHOACANO SIEGEL JRFacility:R2Gbgbi: 10-05-2020 End: 00-44-2427kshsnbllubIN NONE LISTED REQUESTFacility:H1 Procedures DateProcedureProcedure DetailPerforming ClinicianStart: 78-43-1806Zxmhegizrwx removal of ureteric stentJENNIFER LINUS Start: 36-66-7220Fgfvytdxbom laser lithotripsy of ureteric calculusJENNIFER LINUS Immunizations Immunization DateImmunizationNotesCare LtgqnhnfLtoybwzp73-90-6467FBCL-MwV-1 (COVID-19) mRNA BNT-162b2 vaxJENNIFER LINUS [facility]02-19-2021SARS-CoV-2 (COVID-19) mRNA BNT-162b2 vaxJENNIFER LINUS [facility] HospitalComment on above:Result Comment: 2023-03-14: XNU5877-15-1166WOHA-ZwS-2 (COVID-19) mRNA BNT-162b2 vaxJENNIFER LINUS [facility] Payers DatePayer CategoryPayerPolicy [id number] [id number] 2..[id number] 2..[id number] ..[id number] 2..[id number] Social History DateTypeDetailFacilityStart: 35-30-6148Rhvbduc smoking statusNever smoked tobacco (finding)[facility] Tobacco smoking statusNeverExec[facility] of [facility] Functional Status XtrbGhtyamolaiKjzwweTogscvvi29-23-9246Xycrlfzwci StatusN/AExec[facility] Hospital Discharge instructions 03-14-2023 Note Date & SdabUsjkDnhirgrj10-61-6614 Hospital Discharge instructions Patient Education 03/14/2023 09:18:34 Dietary Guidelines [...] about 300 mg of calcium at each meal.Foods that contain 200 500 mg of calcium a serving include: ?8 oz (237 mL) of milk, hwjepes-csnmjnylgylf-gpoyy milk, and calcium- fortifiedfruit juice. Calcium-fortified means that calcium has been [...] the table and allow each person to addtheir own salt to taste. Use vegetable protein, such as beans, textured vegetable protein (TVP), or tofu, instead of meat inpasta, casseroles, and soups. Meal planning Eat less salt, if told by your dietitian. To do this: ?Avoid eating processed or pre-made food. ?Avoid eating fast food. Eat less animal protein, including cheese, meat, poultry, or fish, if told by your dietitian. To dothis: ?Limit the number of times you have meat, poultry, fish, or cheese each week. Eat a diet free of meat at least 2 days a week. ?Eat only one serving each day of meat, poultry, fish, or seafood. ?When you prepare animal proteins, cut pieces into small portion sizes. For most meat and fish, oneserving is about the size of the palm [...] ?Spinach (cooked), rhubarb, beets, sweet potatoes, and [place]rugu[place] chard. ?Peanuts. ?Potato chips, citizen of the [place] fries, and baked potatoes with skin on. ?Nuts and nut products. ?Chocolate. If you regularly take a diuretic medicine, make sure to eat at least 1 or 2 servings of fruits or vegetables that are high in potassium each day. These include: ?Avocado. ?Banana. ?[place], prune, carrot, or tomato juice. ?Baked potato. [...] magnesium, fish oil, or vitamin B6. Take pwnq-rtd-zkcyjlg and prescription medicines only as told by [...] Casseroles. Pizza. Lasagna. Frozen meals. Potato chips. Romanian fries. The items listed above may not be a complete list of foods and beverages you should limit. Contact a dietitian for more information. What foods should I avoid? Talk to your dietitian about specific foods you should avoid based on the type of kidney stones youhave and your overall health. Fruits Grapefruit. The item listed above may not be a complete list of foods and beverages you should avoid. Contact adietitian for more information. Summary Kidney stones are [...] provider. Document Revised: 07/07/2022 Document Reviewed: 07/07/2022 [facility] Patient Education 2022 Janrain. Follow Up Care 09/12/2022 15:39:44 With:LINUS PENA, ROBB Reed, URL Address: [address] [place] [address]. [place] [phone] When: Unknown Comments:1 yr w/ KUB [facility] Evaluation + Plan note Note Date & TypeNoteFacilityEvaluation + Plan note No data available for this section [facility] Progress note Note Date & TypeNoteFacilityProgress note No data available for this section [facility] Summary Purpose Family History No Family History Records Found No data available for this section No Family History Records Found Advance Directives No Advanced Directives Records FoundNo Advanced Directives Records Found Additional Source Comments (unrecognized sect ion and content) No Status Records FoundNo Status Records Found INFORMATION SOURCE (unrecogn ized section and content) DATE CREATED AUTHOR 04/06/2021 [facility] DATE CREATED AUTHOR 'S ORGANIZ ATION 02/20/2025 [facility] FOR RECORDS PERTAINING TO PATIENTS WHO [...] BE BASED ON THE PRIMARY CLINICAL RECORDS. [facility]. provides no warranty or guarantee of the accuracy or completeness of information in this document.
--- NOTE | 2025-03-20 11:51 | XR_ITS ---
The [place] [id number] Patient Name: ABHAY CHANEL MRN: [id number] date: 1980 Sex: M Assigned Patient Location: RAD Current Patient Location: [facility] Accession/Order Number: [id number] Exam Date: 03/20/2025 11:55 Report Date: 03/20/2025 12:20 At the request of: FELIX ALTAMIRANO NP Procedure: XR abdomen 1V SINGLE VIEW ABDOMEN COMPARISON: 03/08/2023 CLINICAL DATA: Follow-up kidney stones. Supine views of the abdomen and pelvis were obtained. There is air and stool along the colon. No dilated small bowel loops are present. No soft tissue masses are seen. The kidneys are partially obscured, right greater than left. No obvious radiopaque renal or ureteral stones are present. The bony structures are intact. XR/XR abdomen 1V IMPRESSION: NO RADIOPAQUE STONES. Impression dictated by: Puja Mitchell M.D. 03/20/2025 12:20 PM Dictation Location: [place] [address] Electronically authenticated by: [id number] Y Date: 03/20/2025 12:20
== END 2025-03-20 11:39 | disposition home or self-care (01) ==
LOC: RAD 11:39
PROVIDERS: PCP Family Medicine; Visit Provider Nurse Practitioner Family
DX: N20.0 Calculus of kidney (principal)
CPT/HCPCS: 74018